=== PATIENT | male | born 1980 | race Caucasian/White ===

== ENCOUNTER 2021-04-03 12:39 | Emergency (ER) | payer OTHER ==
[~2021-04-03] VITALS: Ht 185 cm; Wt 93.0 kg
[~2021-04-03 12:39] MED LIST: DCS100C PO; HYDR-3454 PO; PNT40TEC PO; SCR1T1 PO
--- NOTE | 2021-04-03 14:14 | ED Neurological Problem ---
General Chief Complaint: Head/Cervical Problems Stated Complaint: UPPER/LOW EXT NUMBNESS, NECK PAIN Nursing Triage Note: PT AMB TO ROOM FT3 PT CO OF NECK PAIN, DIZZINESS AND ARM AND LEG NUMBNESS BILATERALLY STATES HAS HAD PAIN FOR A FEW WEEKS HAS BEEN SEEN BY PCP X2 AND WAS STARTED ON PREDNISONE AND HAS REFERRAL TO NERUOLOGIST IN A COUPLE WEEKS. Source: patient, family (mom) Exam Limitations: no limitations History of Present Illness Date Seen by Provider: Apr 03, 2021 Time Seen by Provider: 13:35 Initial Comments Patient to the ER by private conveyance with his mother and chief complaint for the past couple weeks he has been having progressively worsening weakening of his upper and lower extremities bilateral with occasional paresthesias in his arms and legs. He does have some tenderness in the left paraspinal muscles of his neck. He has not had any trauma or history of back or neck pains. Has not had any surgery or imaging. He has been to the doctor twice in the last week and his doctor did do some labs and then started him on a dose of prednisone. He started off with 6 tablets a day and taper down he does not know the dose. He says he is on day 5 of steroids and has not noticed any improvement in symptoms. He has not had any falls due to weakness. His symptoms are transient and come and go. No family history of ALS, MS, other neurologic disorders. He has not had any recent vaccinations since December, 4 months ago he had COVID-19 vaccination. He has not had any recent illnesses. He is not had fever or stiff neck cough shortness of air diarrhea nausea vomiting, constipation etc. he does however endorse for the past couple days he is found a little more difficult to eat swallow and chew because of weakness. Allergies and Home Medications Allergies Coded Allergies: No Known Drug Allergies (Unverified , 06/30/14) Home Medications Docusate Sodium 100 Mg Cap, 100 MG PO BID Prescribed by: EVELIA LAZARO on 01/19/15 1103 Hydrocodone Bit/Acetaminophen 1 Each Tablet, 1 EACH PO Q4H PRN for PAIN Prescribed by: EVELIA LAZARO on 01/19/15 1103 Patient Home Medication List Home Medication List Reviewed: Yes Review of Systems Review of Systems Constitutional: No chills, No diaphoresis Eyes: Denies Blindness, Denies Blurred Vision Ears, Nose, Mouth, Throat: denies ear pain, denies ear discharge Respiratory: No cough, No short of breath Cardiovascular: No edema, No Hx of Intervention, No palpitations Gastrointestinal: No abdominal pain, No nausea, No vomiting Genitourinary: No discharge, No dysuria Musculoskeletal: No back pain, No joint pain; neck pain Skin: No change in color, No dryness Psychiatric/Neurological: Anxiety; Denies Depressed All Other Systems Reviewed Negative Unless Noted: Yes Past Tbdevaj-Dcftfi-Pdzfbz Hx Patient Social History Tobacco Use?: No Substance use?: No Alcohol Use?: Yes Alcohol Frequency: Couple times a week Pt feels they are or have been: No Immunizations Up To Date Second COVID19 Vaccination Bhanu: BOTH VACCINES COVID19 Vaccine [place] [employer]: MODERNTyra Past Medical History Reproductive Disorders: No Sexually Transmitted Disease: No HIV/AIDS: No Gall Bladder Disease Loss of Vision: Denies Hearing Impairment: Denies Adverse Reaction/Blood Tranf: No Physical Exam Vital Signs Vital Signs - First Documented 04/03/21 12:50 Temp 37.2 Pulse 56 Resp 18 B/P (MAP) 163/103 (123) Pulse Ox 100 Capillary Refill : Less Than 3 Seconds Height, Weight, BMI Height: 6'1.00" Weight: 210lbs. oz. [id number]; 27.00 BMI Method: General Appearance: WD/WN, mild distress HEENT: PERRL/EOMI, pharynx normal Neck: full range of motion, supple, normal inspection Respiratory: lungs clear, normal breath sounds, no respiratory distress, no accessory muscle use Cardiovascular: normal peripheral pulses, regular rate, rhythm Neurologic/Psychiatric: alert, normal mood/affect, oriented x 3 Crainal Nerves: normal hearing, normal speech, PERRL Motor/Sensory: no sensory deficit, no pronator drift, other (Complained of weakness and difficulty with swallowing) Skin: normal color, warm/dry Progress/Results/Core Measures Results/Orders Lab Results Laboratory Tests Test 04/03/21 14:23 Range/Units White Blood Count 12.5 H 4.3-11.0 10^3/uL Red Blood Count 4.99 4.30-5.52 10^6/uL Hemoglobin 15.0 13.3-17.7 g/dL Hematocrit 44 40-54 % Mean Corpuscular Volume 88 80-99 fL Mean Corpuscular Hemoglobin 30 25-34 pg Mean Corpuscular Hemoglobin Concent 34 32-36 g/dL Red Cell Distribution Width 12.3 10.0-14.5 % Platelet Count 251 130-400 10^3/uL Mean Platelet Volume 10.2 9.0-12.2 fL Immature Granulocyte % (Auto) 1 % Neutrophils (%) (Auto) 61 42-75 % Lymphocytes (%) (Auto) 32 12-44 % Monocytes (%) (Auto) 7 0-12 % Eosinophils (%) (Auto) 0 0-10 % Basophils (%) (Auto) 0 0-10 % Neutrophils # (Auto) 7.6 1.8-7.8 10^3/uL Lymphocytes # (Auto) 4.0 1.0-4.0 10^3/uL Monocytes # (Auto) 0.8 0.0-1.0 10^3/uL Eosinophils # (Auto) 0.0 0.0-0.3 10^3/uL Basophils # (Auto) 0.0 0.0-0.1 10^3/uL Immature Granulocyte # (Auto) 0.1 0.0-0.1 10^3/uL Erythrocyte Sedimentation Rate 1 0-15 MM/HR Sodium Level 143 135-145 MMOL/L Potassium Level 3.4 L 3.6-5.0 MMOL/L Chloride Level 105 98-107 MMOL/L Carbon Dioxide Level 26 21-32 MMOL/L Anion Gap 12 5-14 MMOL/L Blood Urea Nitrogen 14 7-18 MG/DL Creatinine 0.93 0.60-1.30 MG/DL Estimat Glomerular Filtration Rate > 60 BUN/Creatinine Ratio 15 Glucose Level 98 70-105 MG/DL Calcium Level 9.2 8.5-10.1 MG/DL Corrected Calcium 8.8 8.5-10.1 MG/DL Total Bilirubin 0.7 0.1-1.0 MG/DL Aspartate Amino Transf (AST/SGOT) 14 5-34 U/L Alanine Aminotransferase (ALT/SGPT) 17 0-55 U/L Alkaline Phosphatase 62 40-136 U/L Total Creatine Kinase 33 30-200 U/L C-Reactive Protein High Sensitivity 0.02 0.00-0.50 MG/DL Total Protein 7.1 6.4-8.2 GM/DL Albumin 4.5 3.2-4.5 GM/DL My Orders Orders - CASANDRA TAO Cbc With Automated Diff (04/03/21 14:03) Comprehensive Metabolic Panel (04/03/21 14:03) Hs C Reactive Protein (04/03/21 14:03) Erythrocyte Sedimentation Rate (04/03/21 14:03) Mri Brain W/O Contrast (04/03/21 14:03) Mri Cervical Spine W/O Contras (04/03/21 14:03) Creatine Kinase (04/03/21 14:08) Alprazolam Tablet (Xanax Tablet) (04/03/21 14:30) Medications Given in ED Current Medications Medications Dose Ordered Sig/Keesha Route Start Time Stop Time Status Last Admin Dose Admin Alprazolam 0.25 mg ONCE ONCE PO 04/03/21 14:30 04/03/21 14:31 DC 04/03/21 14:28 0.25 MG Vital Signs/I&O 04/03/21 04/03/21 12:50 16:35 Temp 37.2 37.2 Pulse 56 56 Resp 18 18 B/P (MAP) 163/103 (123) 163/103 (123) Pulse Ox 100 100 Blood Pressure Mean: 123 Progress Progress Note : Time: 14:14 Progress Note Concern for MS, less likely MG, ALS or other neurologic disorders. We can get an MRI of his brain and C-spine today and that will help us see whether he has a mass. After that we have encouraged him to follow-up with neurologist for more careful diagnostic evaluation. We will get some basic labs including some markers of inflammation. His vital signs are not remarkable nor is his clinical exam remarkable for likely infectious etiology. Diagnostic Imaging Diagonstic Imaging: MRI Plain Films/CT/US/NM/MRI: c-spine, head Comments [facility], [place] NAME: TORY PAEZ [facility] REC#: [id number] PT STATUS: REG ER : 1980 PHYSICIAN: CASANDRA TAO MD ADMIT DATE: 04/03/21/ER Draft Date of Exam:04/03/21 MRI CERVICAL SPINE W/O CONTRAS PROCEDURE: MR imaging cervical spine without contrast. TECHNIQUE: Multiplanar, multisequence MR imaging of the cervical spine was performed without contrast. INDICATION: Bulbar, upper and lower extremity weakness. COMPARISON: None. FINDINGS: Examination is mildly limited by motion. Normal alignment. Vertebral body heights are preserved. Normal bone marrow signal. No abnormal signal in the cervical spinal cord. The visualized paravertebral soft tissues are unremarkable. C2-C3: Normal. C3-C4: Normal. C4-C5: Normal. C5-C6: Small central disc protrusion results in no substantial spinal canal narrowing. Mild right neuroforaminal narrowing. C6-C7: Annular disc bulge results in mild spinal canal and moderate bilateral neuroforaminal narrowing. C7-T1: Disc osteophyte complex results in moderate spinal canal and right neuroforaminal narrowing. [id number] left neuroforaminal narrowing. T1-T2: Annular disc bulge results in mild spinal canal narrowing. No neuroforaminal narrowing. IMPRESSION: 1. 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 2. Scattered neuroforaminal narrowing, detailed above level by level. 3. No abnormal signal in the cervical spinal cord. Dictated on workstation # [id number] Dict: 04/03/21 1523 Trans: 04/03/21 1534 [id number] Interpreted by: RED DUNAWAY MD Electronically signed by: [facility], [place] NAME: TORY PAEZ [facility] REC#: [id number] PT STATUS: REG ER : 1980 PHYSICIAN: CASANDRA TAO MD ADMIT DATE: 04/03/21/ER Draft Date of Exam:04/03/21 MRI BRAIN W/O CONTRAST PROCEDURE: MR imaging of the brain without contrast. TECHNIQUE: Multiplanar, multisequence MR imaging of the brain was performed without contrast. INDICATION: Bulbar, upper and lower extremity weakness. COMPARISON: None. FINDINGS: No abnormal intracranial signal. No restricted water diffusion. No hemosiderin deposition or evidence of intracranial hemorrhage. Normal morphology including the major midline structures, sella, posterior fossa and cerebellopontine angle. Normal intracranial flow voids. No hydrocephalus or extra-axial fluid collections. The orbits are unremarkable. Paranasal sinuses and mastoids are clear. Normal bone marrow signal. IMPRESSION: Normal MRI of the brain. No acute findings. No evidence of infarction or hemorrhage. Dictated on workstation # [id number] Dict: 04/03/21 1512 Trans: 04/03/21 1517 [facility] [id number] Interpreted by: RED DUNAWAY MD Electronically signed by: Reviewed: Reviewed by Me Departure Impression Primary Impression: Cervical radiculopathy due to osteoarthritis of spine Additional Impression: Anxiety about health Disposition: 01 HOME, SELF-CARE Condition: Stable Departure-Patient Inst. Decision time for Depature: 16:16 Referrals: NO,LOCAL PHYSICIAN (PCP/Family) Primary Care Physician Patient Instructions: Degenerative Disc Disease (DC), Radiculopathy Add. Discharge Instructions: You do not have any evidence of MS on your MRI or other anatomical neurologic defects. You do have some degenerative changes in your spine of your neck and this could be contributing to pinching on nerves as they exit your neck which is causing the the tingling and weakness sensations. Follow-up with your primary care doctor to continue to manage the symptoms. Physical therapy in addition to your steroids may be beneficial. It is okay to continue taking the prednisone until completion. All discharge instructions reviewed with patient and/or family. Voiced understanding. CASANDRA TAO Apr 03, 2021 14:14
[2021-04-03 14:29] LABS: BASOPHILS % (AUTO) 0 % (0-10); EOSINOPHILS % (AUTO) 0 % (0-10); HEMATOCRIT 44 % (40-54); LYMPHOCYTES % (AUTO) 32 % (12-44); MEAN CORPUSCULAR HEMOGLOBIN 30 pg (25-34); MEAN CORPUSCULAR HGB CONC 34 g/dL (32-36); MEAN CORPUSCULAR VOLUME 88 fL (80-99); MEAN PLATELET VOLUME 10.2 fL (9.0-12.2); MONOCYTES # (AUTO) 0.8 10^3/uL (0.0-1.0); MONOCYTES % (AUTO) 7 % (0-12); NEUTROPHILS # (AUTO) 7.6 10^3/uL (1.8-7.8); NEUTROPHILS % (AUTO) 61 % (42-75); PLATELET COUNT 251 10^3/uL (130-400); WHITE BLOOD COUNT 12.5 10^3/uL (4.3-11.0)
[2021-04-03] MEDS ORDERED: ALPRAZolam 0.25 MG (XANAX) TAB PO ONE (14:30)
[2021-04-03 14:41] LABS: ALBUMIN 4.5 GM/DL (3.2-4.5); CHLORIDE 105 MMOL/L (98-107); POTASSIUM 3.4 MMOL/L (3.6-5.0); SODIUM 143 MMOL/L (135-145)
[2021-04-03 14:42] LABS: CALCIUM 9.2 MG/DL (8.5-10.1)
[2021-04-03 14:43] LABS: GLUCOSE 98 MG/DL (70-105)
[2021-04-03 14:44] LABS: TOTAL PROTEIN 7.1 GM/DL (6.4-8.2)
[2021-04-03 14:45] LABS: BILIRUBIN,TOTAL 0.7 MG/DL (0.1-1.0); CARBON DIOXIDE 26 MMOL/L (21-32)
[2021-04-03 14:47] LABS: ALKALINE PHOSPHATASE 62 U/L (40-136); CREATININE SERUM 0.93 MG/DL (0.60-1.30); GFR ESTIMATED > 60
[2021-04-03 14:48] LABS: BUN/CREATININE RATIO 15
[2021-04-03 14:50] LABS: ALANINE AMINOTRANSFERASE 17 U/L (0-55); CREATINE KINASE 33 U/L (30-200)
[2021-04-03 14:53] LABS: ERYTHROCYTE SEDIMENTATION RATE 1 MM/HR (0-15)
--- NOTE | 2021-04-03 15:17 | Diagnostic Imaging Report ---
PROCEDURE: MR imaging of the brain without contrast. TECHNIQUE: Multiplanar, multisequence MR imaging of the brain was performed without contrast. INDICATION: Bulbar, upper and lower extremity weakness. COMPARISON: None. FINDINGS: No abnormal intracranial signal. No restricted water diffusion. No hemosiderin deposition or evidence of intracranial hemorrhage. Normal morphology including the major midline structures, sella, posterior fossa and cerebellopontine angle. Normal intracranial flow voids. No hydrocephalus or extra-axial fluid collections. The orbits are unremarkable. Paranasal sinuses and mastoids are clear. Normal bone marrow signal. IMPRESSION: Normal MRI of the brain. No acute findings. No evidence of infarction or hemorrhage. Dictated by: Dictated on workstation # [id number]
--- NOTE | 2021-04-03 15:35 | Diagnostic Imaging Report ---
PROCEDURE: MR imaging cervical spine without contrast. TECHNIQUE: Multiplanar, multisequence MR imaging of the cervical spine was performed without contrast. INDICATION: Bulbar, upper and lower extremity weakness. COMPARISON: None. FINDINGS: Examination is mildly limited by motion. Normal alignment. Vertebral body heights are preserved. Normal bone marrow signal. No abnormal signal in the cervical spinal cord. The visualized paravertebral soft tissues are unremarkable. C2-C3: Normal. C3-C4: Normal. C4-C5: Normal. C5-C6: Small central disc protrusion results in no substantial spinal canal narrowing. Mild right neuroforaminal narrowing. C6-C7: Annular disc bulge results in mild spinal canal and moderate bilateral neuroforaminal narrowing. C7-T1: Disc osteophyte complex results in moderate spinal canal and right neuroforaminal narrowing. [id number] left neuroforaminal narrowing. T1-T2: Annular disc bulge results in mild spinal canal narrowing. No neuroforaminal narrowing. IMPRESSION: 1. 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 2. Scattered neuroforaminal narrowing, detailed above level by level. 3. No abnormal signal in the cervical spinal cord. Dictated by: Dictated on workstation # [id number]
[2021-04-03 16:35] VITALS: BP 163/103
== END 2021-04-03 16:35 | disposition home or self-care (01) ==
LOC: EDUNIT# 12:39 → ER 12:42
DX: M54.12 Radiculopathy, cervical region (principal)
CPT/HCPCS: 36415; 70551; 72141; 80053; 82550; 85025; 85652; 86141